=== PATIENT | male | born 1995 | race Caucasian/White ===

== ENCOUNTER 2016-07-23 05:03 | Emergency (ER) | payer SELFPAY ==
[~2016-07-23] VITALS: Ht 175.3 cm; Wt 85.0 kg
[~2016-07-23 05:03] MED LIST: ALBU8.5H5 IH; ALBU8.5H5 INH; BECL8.7A INH; GUAI118L94 PO; IBUP-1542 PO; INHALER; TRAM50TA2 PO
[2016-07-23 05:18] VITALS: Ht 175.3 cm; Wt 85.0 kg
[2016-07-23] MEDS ORDERED: DIPHTH/TET/ACEL PERTUSS (ADULT) 0.5 ML VIAL IM* ONE (06:30)
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
[2016-07-23] MEDS ORDERED: LIDOCAINE 1% (MDV) 20 ML INJ SC ONE (07:00)
--- NOTE | 2016-07-23 07:10 | RADRPT ---
PROCEDURE: CT Brain without contrast. CLINICAL INDICATION: Trauma TECHNIQUE: A CT of the brain was performed on a multidetector CT scanner utilizing axial imaging f rom the skull base through the vertex without IV contrast. Multiplanar reformatted images were made . Images were reviewed on a PACS workstation. The CTDIvol is 44 mGy and the DLP is 900 mGycm. COMPARISON: Head CT June 08, 2014 FINDINGS: There is no intracranial hemorrhage, mass effect, or midline shift. No extra-axial fluid collection is seen. The ventricles and sulci are normal in size and configuration. The density of the brain is normal, and the thomas white matter differentiation appears well-preserved. The visualized paranasal sinuses and osseous structures are grossly unremarkable. IMPRESSION: 1. No evidence of acute intracranial pathology. 2. The brain is normal in appearance. .Joseph Hale MD, MD Date Time Electronically viewed and signed by .Joseph Hale MD, MD on 07/23/2016 07:10 .A/
--- NOTE | 2016-07-23 08:45 | RADRPT ---
PROCEDURE: XR right hand. CLINICAL INDICATION: Laceration/pain TECHNIQUE: Three views are available for review. COMPARISON: 07/14/2013 FINDINGS: The osseous structures are normal in mineralization, architecture and alignment. No fracture or oss eous lesion is identified. The joints are unremarkable. No erosions are identified. The soft tissue s are unremarkable. No radiopaque foreign body is identified IMPRESSION: Unremarkable examination. RPTAT: HGDB .Aristeo Greenwood MD, MD Date Time Electronically viewed and signed by .Aristeo Greenwood MD, on 07/23/2016 08:45 .B/
[2016-07-23] MEDS ORDERED: CEPH-443 PO (09:21)
[2016-07-23] MEDS ORDERED: IBUP800T25 PO (09:22)
== END 2016-07-23 09:41 | disposition home or self-care (01) ==
LOC: FTE 05:03
DX: S61.210A Laceration without foreign body of right index finger without damage to nail, initial encounter (principal); J45.909 Unspecified asthma, uncomplicated; S06.0X0A Concussion without loss of consciousness, initial encounter; S61.212A Laceration without foreign body of right middle finger without damage to nail, initial encounter; S00.03XA Contusion of scalp, initial encounter; S00.83XA Contusion of other part of head, initial encounter; S20.222A Contusion of left back wall of thorax, initial encounter; S20.221A Contusion of right back wall of thorax, initial encounter; S50.02XA Contusion of left elbow, initial encounter; S40.021A Contusion of right upper arm, initial encounter; S40.022A Contusion of left upper arm, initial encounter; X99.0XXA Assault by sharp glass, initial encounter; W18.39XA Other fall on same level, initial encounter; Y92.481 Parking lot as the place of occurrence of the external cause; Z23 Encounter for immunization
CPT/HCPCS: 70450; 90471; 90715

== ENCOUNTER 2017-07-28 02:15 | Emergency (ER) | END 2017-07-28 04:18 | disposition home or self-care (01) ==

== ENCOUNTER 2017-10-14 15:42 | Emergency (ER) | END 2017-10-14 17:50 | disposition left against medical advice (07) ==

== ENCOUNTER 2018-05-16 04:53 | Emergency (ER) | payer SELFPAY ==
[~2018-05-16] VITALS: Ht 172.7 cm; Wt 83.0 kg
[~2018-05-16 04:53] MED LIST changes: +CEPH-443 PO; +IBUP800T48 PO
[2018-05-16 04:57] VITALS: BP 144/69; PULSE 109; RESP 18; Ht 172.7 cm; Wt 83.0 kg
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
[2018-05-16] MEDS ORDERED: DIPHTH/TET/ACEL PERTUSS (ADULT) 0.5 ML VIAL IM* ONE (05:30)
[2018-05-16] MEDS ORDERED: HYDROCODONE/APAP (10/325) TAB PO ONE (05:30)
== END 2018-05-16 06:31 | disposition left against medical advice (07) ==
LOC: FTE 04:53
DX: S60.812A Abrasion of left wrist, initial encounter (principal); J45.909 Unspecified asthma, uncomplicated; S20.319A Abrasion of unspecified front wall of thorax, initial encounter; S20.411A Abrasion of right back wall of thorax, initial encounter; Y04.8XXA Assault by other bodily force, initial encounter
CPT/HCPCS: 99282